=== PATIENT | male | born 1970 | race Caucasian/White ===

== ENCOUNTER 2022-07-02 18:32 | Emergency (ER) | payer OTHER, SELFPAY ==
--- NOTE | ~2022-07-02 | XR_ITS ---
EXAMINATION: XR chest 1V portable Exam Date/Time: 07/02/2022 19:12 CDT HISTORY: cough WITH CHEST PAIN X 1 DAY Comparison: 12/20/18. RESULT: Lines, tubes, and devices: None. Lungs and pleura: Hazy and linear left basilar opacities. Minimal left costophrenic angle blunting. Cardiomediastinal silhouette: Stable. Other: No acute osseous or upper abdominal finding. IMPRESSION: Subsegmental left basilar atelectasis/consolidation. Possible trace left pleural effusion. Reviewed, dictated and finalized at location K. IMPRESSION: Subsegmental left basilar atelectasis/consolidation. Possible trace left pleura l effusion.
[2022-07-02 18:37] VITALS: BP 109/68; PULSE 120; RESP 20; TEMP 36.6; O2SAT 95
--- NOTE | 2022-07-02 19:05 | ECG_ITS ---
Measurements Intervals [place] Rate: 141 P: 68 IA: 141 QRS: 48 QRSD: 85 T: 66 QT: 285 QTc: 437 Interpretive Statements SINUS TACHYCARDIA RSR' IN V1 OR V2, PROBABLY NORMAL VARIANT ABNORMAL ECG COMPARED TO ECG 12/23/2018 15:55:31 HEART RATE HAS INCREASED Electronically Signed On 07-03-2022 6:44:[address] D.O.
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
[2022-07-02] MEDS: SODIUM CHLORIDE 0.9% IV 1,000 ML 999 ML IV CONT (20:17)
[2022-07-02 20:20] LABS: Basophils Absolute Auto 0.1 K/mm3 (0.0-0.1); Basophils Percent Auto 0.5 % (0.2-1.2); Eosinophils Absolute Auto 0.1 K/mm3 (0-0.3); Eosinophils Percent Auto 0.9 % (0-4.4); Hemoglobin 15.2 g/dL (14.0-18.0); Immature Granulocyte Absolute 0.05 K/mm3 (0.00-0.031); Immature Granulocyte Percent A 0.4 % (0-0.5); Lymphocytes Absolute Auto 4.08 K/mm3 (0.9-3.2); Lymphocytes Percent Auto 29.4 % (18.3-44.2); Mean Corpuscular HGB Conc 33.8 g/dl (32-36); Mean Corpuscular Hemoglobin 30.6 pg (26-34); Mean Corpuscular Volume 90.5 fl (80-100); Mean Platelet Volume 8.8 fl (7.4-10.4); Monocytes Absolute Auto 0.8 K/mm3 (0.1-0.6); Monocytes Percent Auto 5.4 % (2.6-8.5); Neutrophils Absolute Auto 8.8 K/mm3 (1.3-6.7); Neutrophils Percent Auto 63.4 % (45.5-73.1); Platelet Count Result 506 k/mm3 (150-375); Red Blood Count 4.97 M/mm3 (4.6-6.20); White Blood Count 13.9 K/mm3 (4.5-10.0)
[2022-07-02 20:21] LABS: Appearance Urine Clear (Clear); Bilirubin Urine Negative (Negative); Blood Urine Negative (Negative); Color Urine Yellow (Yellow); Glucose Urine UA Negative (Negative); Ketones Urine Negative (Negative); Leukocyte Esterase Ur Negative LEU/UL (Negative); Nitrate Urine Negative (Negative); Protein Urine Negative (Negative); Specific Grav Ur 1.004 (1.001-1.035); Urobilinogen Urine 0.2 mg/dL (<2.0); pH Urine 5.5 (5.0-9.0)
[2022-07-02 20:32] VITALS: BP 101/77; PULSE 103; RESP 18; O2SAT 98
[2022-07-02 20:32] LABS: Prothrombin Time 13.3 Seconds (11.1-14.7)
[2022-07-02 20:33] LABS: Partial Thromboplastin Time 31.2 SECONDS (22.3-36.8)
[2022-07-02 20:35] LABS: Add Urine Microscopic? NO
[2022-07-02 20:42] LABS: Alanine Aminotransferase 17 U/L (6-50); Albumin Level 4.7 g/dL (3.5-5.1); Alkaline Phosphatase 66 U/L (38-126); Anion Gap 13 mmol/L (8-16); Aspartate Amino Transferase 26 U/L (17-59); Bilirubin,Total 0.4 mg/dL (0.2-1.3); Blood Urea Nitrogen 7 mg/dL (9-20); Calcium 8.8 mg/dL (8.4-10.2); Carbon Dioxide 23 mmol/L (22-30); Chloride 105 mmol/L (98-107); Estimated CRCL calculation 105 ml/min; Estimated Glomerular Filt Rate > 60; Glucose 90 mg/dL (65-110); Lipase 101 U/L (23-300); Magnesium 2.5 mg/dL (1.6-2.3); Potassium 3.6 mmol/L (3.4-5.0); Sodium 141 mmol/L (137-145)
[2022-07-02 20:51] LABS: Ethanol 341 mg/dL (<10)
[2022-07-02 20:54] LABS: Troponin I < 0.012 ng/mL (0.000-0.034)
[2022-07-02 21:06] LABS: Amphetamine Screen Urine Negative (Negative); Barbiturate Screen Urine Negative (Negative); Benzodiazepines Screen Urine Negative (Negative); Cannabinoid Screen Urine Negative (Negative); Cocaine Screen Urine Negative (Negative); Methadone Screen Urine Negative (Negative); Opiate Screen Urine Negative (Negative); Phencyclidine Screen Urine Negative (Negative)
[2022-07-02 21:54] VITALS: BP 115/72; PULSE 86; RESP 19; O2SAT 98
--- NOTE | 2022-07-02 22:49 | PC.NURSE ---
, Barbara his sisters number.
[2022-07-02 23:15] VITALS: BP 126/82; PULSE 87; RESP 13; O2SAT 98
== END 2022-07-02 23:15 | disposition home or self-care (01) ==
PROVIDERS: Emergency Provider Emergency Medicine
DX: F10.920 Alcohol use, unspecified with intoxication, uncomplicated (principal); Y90.8 Blood alcohol level of 240 mg/100 ml or more
CPT/HCPCS: 36415; 71045; 80053; 80307; 81003; 83690; 83735; 84484; 85025; 85610; 85730; 93005; 96360; 96361; 99284; J7030

== ENCOUNTER 2023-01-10 22:06 | Emergency (ER) | payer OTHER, SELFPAY ==
[2023-01-10 22:22] VITALS: BP 149/83; PULSE 68; RESP 14; TEMP 36.8; O2SAT 99
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
--- NOTE | 2023-01-10 22:52 | PC.NURSE ---
informed by CT that patient not in his room. Derek meyer made aware
--- NOTE | 2023-01-10 22:54 | PC.NURSE ---
pt was seen fleeing ED. security, [place] [employer], and [facility] were notified. pt has stated numerous times they still have a plan to kill his ex girlfriends boyfriend.
--- NOTE | 2023-01-10 23:04 | PC.NURSE ---
charge nurse ELENA Robbins called PD and notified them of name of girlfriend to contact them.
== END 2023-01-10 23:00 | disposition left against medical advice (07) ==
LOC: ANHED 22:53
PROVIDERS: Emergency Provider Physician Assistant
DX: R45.850 Homicidal ideations (principal); C34.92 Malignant neoplasm of unspecified part of left bronchus or lung
CPT/HCPCS: 99281

== ENCOUNTER 2023-01-11 15:24 | Emergency (ER) | payer OTHER, SELFPAY ==
[2023-01-11 15:26] VITALS: BP 144/65; PULSE 128; RESP 20; TEMP 36.6; O2SAT 100
[2023-01-11 16:20] LABS: Basophils Absolute Auto 0.1 K/mm3 (0.0-0.1); Basophils Percent Auto 0.5 % (0.2-1.2); Eosinophils Absolute Auto 0.3 K/mm3 (0-0.3); Eosinophils Percent Auto 1.9 % (0-4.4); Hematocrit 50.9 % (42.0-52.0); Hemoglobin 16.6 g/dL (14.0-18.0); Immature Granulocyte Absolute 0.05 K/mm3 (0.00-0.031); Immature Granulocyte Percent A 0.4 % (0-0.5); Lymphocytes Absolute Auto 4.96 K/mm3 (0.9-3.2); Lymphocytes Percent Auto 35.5 % (18.3-44.2); Mean Corpuscular HGB Conc 32.6 g/dl (32-36); Mean Corpuscular Hemoglobin 29.9 pg (26-34); Mean Corpuscular Volume 91.7 fl (80-100); Mean Platelet Volume 9.1 fl (7.4-10.4); Monocytes Absolute Auto 0.7 K/mm3 (0.1-0.6); Monocytes Percent Auto 4.9 % (2.6-8.5); Neutrophils Percent Auto 56.8 % (45.5-73.1); Platelet Count Result 504 k/mm3 (150-375); Red Blood Count 5.55 M/mm3 (4.6-6.20); Red Cell Distribution Width 13.7 % (11.5-14.5)
[2023-01-11 16:30] LABS: Appearance Urine Clear (Clear); Bilirubin Urine Negative (Negative); Blood Urine Negative (Negative); Color Urine Yellow (Yellow); Glucose Urine UA Negative (Negative); Ketones Urine Negative (Negative); Leukocyte Esterase Ur Negative LEU/UL (Negative); Nitrate Urine Negative (Negative); Protein Urine Negative (Negative); Specific Grav Ur 1.006 (1.001-1.035); Urobilinogen Urine 0.2 mg/dL (<2.0); pH Urine 5.5 (5.0-9.0)
[2023-01-11 16:32] LABS: Alanine Aminotransferase 16 U/L (6-50); Alkaline Phosphatase 78 U/L (38-126); Anion Gap 15 mmol/L (8-16); Aspartate Amino Transferase 21 U/L (17-59); Bilirubin,Total 0.4 mg/dL (0.2-1.3); Blood Urea Nitrogen 5 mg/dL (9-20); Calcium 9.5 mg/dL (8.4-10.2); Carbon Dioxide 25 mmol/L (22-30); Chloride 105 mmol/L (98-107); Estimated CRCL calculation 87 ml/min; Estimated Glomerular Filt Rate > 60; Glucose 103 mg/dL (65-110); Potassium 4.1 mmol/L (3.4-5.0); Sodium 145 mmol/L (137-145)
[2023-01-11 16:33] LABS: Ethanol 209 mg/dL (<10)
[2023-01-11 16:35] LABS: Add Urine Microscopic? NO
[2023-01-11 16:43] LABS: Barbiturate Screen Urine Negative (Negative); Benzodiazepines Screen Urine Negative (Negative)
[2023-01-11 16:50] LABS: Cannabinoid Screen Urine Negative (Negative); Cocaine Screen Urine Negative (Negative); Methadone Screen Urine Negative (Negative); Opiate Screen Urine Negative (Negative); Phencyclidine Screen Urine Negative (Negative)
[2023-01-11 16:55] LABS: SARS-CoV-2 RNA PCR Negative (Negative)
[2023-01-11 17:03] LABS: Thyroid Stimulating Hormone 0.225 uIU/mL (0.465-4.680)
[2023-01-11 17:17] LABS: Amphetamine Screen Urine Negative (Negative)
--- NOTE | 2023-01-11 18:29 | PC.NURSE ---
Pt becoming aggressive at sitter, dicussed POC with pt and involuntary status per PD. Pt behavior temporarily deesclated, security at bedside r/t pt behavior. Pt states all of us will be bed
--- NOTE | 2023-01-11 19:09 | ECG_ITS ---
Measurements Intervals [place] Rate: 101 P: 72 OK: 172 QRS: 69 QRSD: 86 T: 66 QT: 334 QTc: 434 Interpretive Statements SINUS TACHYCARDIA INCOMPLETE RIGHT BUNDLE BRANCH BLOCK BORDERLINE ECG COMPARED TO ECG 07/02/2022 19:54:59 HEART RATE HAS DECREASED Electronically Signed On 01-11-2023 21:40:16 SEAMING MACHINE OPERATOR by Bobo St D.O.
[2023-01-11 19:11] VITALS: PULSE 105
--- NOTE | 2023-01-11 19:11 | ED.PSYCH ---
HPI - Psych General Chief Complaint: Psychiatric Symptoms <Sherry Sierra PA-C - Last Filed: 01/12/23 03:01> Stated Complaint: depression <Sherry Sierra PA-C - Last Filed: 01/12/23 03:01> Time Seen by Provider: 01/11/23 18:22 <Sherry Sierra PA-C - Last Filed: 01/12/23 03:01> History of Present Illness HPI Narrative: 52-year-old male is brought in by [facility] and PD with involuntary paperwork signed by PD for homicidal ideations. Patient was seen in the ER yesterday and eloped. PD was contacted and he was brought back here today. The patient was brought in for homicidal ideations as he just found out his girlfriend is involved with another man. He has been stating he wants to kill both his girlfriend and the other man. Yesterday, the patient told me that he had status stepdad , today he is denying history of murder. Currently, he states he does not want to harm anyone and would never kill his girlfriend. When asked if he would kill girlfriend's boyfriend, he laughed. Prior to my evaluation, the patient had voiced to the tech outside of his room that he was going to kill the police officers as well. The patient denies suicidal ideations he does report a history of multiple suicide attempts. He states he has been hospitalized multiple times in psychiatric facilities but is unable to tell me why. One of the facilities as in [place]. He does endorse a history of anxiety but denies history of schizophrenia or hallucinations. He denies drug use to me, however told me yesterday that he had been using meth and cocaine. He also does admit to drinking ?a lot of alcohol? for the past few days including beer and vodka. Denies chest pain and shortness of breath. <Sherry Sierra PA-C - Last Filed: 01/12/23 03:01> Related Data Allergies/Adverse Reactions: Allergies Allergy/AdvReac Type Severity Reaction Status Date / Time No Known Allergies Allergy Unknown Verified 07/02/22 18:40 <Sherry Sierra PA-C - Last Filed: 01/12/23 03:01> Review of Systems Review of Systems: CONSTITUTIONAL: Denies fever, chills, or sweats. EYES: Denies visual changes, redness, or discharge. ENT: Denies rhinorrhea, congestion, sore throat, or otalgia. CARDIOVASCULAR: Denies chest pain, palpitations, or edema. RESPIRATORY: Denies cough or dyspnea. GASTROINTESTINAL: Denies abdominal pain, nausea, vomiting, or diarrhea. GENITOURINARY: Denies dysuria or hematuria. SKIN: Denies rash or itching. MUSCULOSKELETAL: Denies back pain, joint pain, or myalgia. NEUROLOGIC: Denies headache, numbness, or weakness. PSYCHIATRIC: See HPI <Sherry Sierra PA-C - Last Filed: 01/12/23 03:01> PMFSH Social History Social History: Social History Substance use type: methamphetamine <Sherry Sierra PA-C - Last Filed: 01/12/23 03:01> Exam Narrative: GENERAL: Well-appearing, well-nourished, and in no acute distress. Intoxicated HEAD: Normocephalic, atraumatic. EYES: PERRLA and EOMI. ENT: Nares clear, no rhinorrhea or epistaxis. Mucous membranes moist. NECK: Supple. CHEST: Clear to auscultation. No respiratory distress. HEART: Regular rate and rhythm. No murmur heard. Normal peripheral pulses. EXTREMITIES: Normal range of motion. No edema. SKIN: Warm, dry, no rash. NEURO: No focal deficits. Alert and oriented x3 PSYCH: Intoxicated, slurred speech. Patient currently denying SI or HI. He does endorse history of anxiety. Poor judgment and insight. No active hallucinations or delusions. Easily redirectable at this time. <Sherry Sierra PA-C - Last Filed: 01/12/23 03:01> Course TUNNEL MINER/PA Physician Supervision For this patient encounter, I reviewed the TUNNEL MINER or PA documentation, treatment plan, and medical decision making and I had [id number] time with this patient. I performed all aspects of the MDM as documented. <DO Glenn Dorantes
--- NOTE | 2023-01-11 19:22 | PC.NURSE ---
Assumed care of pt from ELENA Martinez at this time.
[2023-01-11 19:24] LABS: Free T4 Free Thyroxine 1.06 ng/mL (0.78-2.19)
[2023-01-11 23:28] VITALS: BP 159/101; PULSE 86; RESP 20; TEMP 36.4; O2SAT 97
[2023-01-12 00:18] LABS: Ethanol < 10 mg/dL (<10)
--- NOTE | 2023-01-12 01:04 | PC.NURSE ---
chestnut here to evaluate patient
--- NOTE | 2023-01-12 02:50 | PC.NURSE ---
Paul from [facility] called this RN asking for additional questions and to speak to pt. Pt cooperated and spoke w Paul. Nayely from [facility] called to verify pt was still needing placement. Stated nurse would call back for nurse to nurse report.
[2023-01-12 03:40] VITALS: BP 148/79; PULSE 97; RESP 20; O2SAT 96
--- NOTE | 2023-01-12 04:18 | PC.NURSE ---
This RN spoke w Elizabeth, RN from [facility] for nurse to nurse report. All questions answered. Elizabeth stated she would speak w doctor and call back w determination of acceptance.
--- NOTE | 2023-01-12 04:50 | PC.NURSE ---
Pt was accepted at [facility]. This RN spoke jenny Miller RN. This RN is to call report around [phone] to recieve bed placement. Pt cannot be xfr until after 0730.
[2023-01-12 06:22] VITALS: BP 151/82; PULSE 99; RESP 22; O2SAT 98
--- NOTE | 2023-01-12 06:23 | PC.NURSE ---
This RN spoke with ELENA Wagner at [facility] whom gave bed assignment and name of accepting physician. Pt to go to bed 224A after 729.
[2023-01-12 07:00] VITALS: BP 150/85; PULSE 86; RESP 20; O2SAT 98
--- NOTE | 2023-01-12 07:13 | PC.NURSE ---
Report given to ELENA Lott at this time.
== END 2023-01-12 09:04 ==
PROVIDERS: Emergency Medicine; Physician Assistant; Emergency Provider Student in an Organized Health Care Education/Training Program
DX: R45.850 Homicidal ideations (principal); Z20.822 Contact with and (suspected) exposure to COVID-19
CPT/HCPCS: 36415; 80053; 80307; 81003; 84439; 84443; 85025; 87635; 93005; 99285

== ENCOUNTER 2024-04-10 01:09 | Emergency (ER) | payer OTHER, SELFPAY ==
[2024-04-10 01:10] VITALS: BP 142/86; PULSE 110; RESP 19; TEMP 36.6; O2SAT 100
--- NOTE | 2024-04-10 03:16 | PC.NURSE ---
Per staff, pt seen ambulating out lobby doors with visitor.
== END 2024-04-10 03:16 | disposition left against medical advice (07) ==
LOC: ANHED 03:22
DX: M54.2 Cervicalgia (principal)
CPT/HCPCS: 99199

== ENCOUNTER 2024-09-02 15:39 | Emergency (ER) | payer OTHER, SELFPAY ==
[2024-09-02 15:47] VITALS: BP 148/96; PULSE 83; RESP 18; TEMP 36.4; O2SAT 100
--- NOTE | 2024-09-02 16:18 | ED.SKABFB ---
HPI - Skin/Abscess/Foreign Bdy General Chief complaint: Skin/Abscess/Foreign Body Stated complaint: Rash Time Seen by Provider: 09/02/24 16:11 Source: patient and RN notes reviewed Mode of arrival: ambulatory Limitations: no limitations History of Present Illness HPI narrative: Patient presents today with a 7-10 day history of mildly pruritic rash to the back, abdomen, and chest. He has tried calamine lotion, [id number] itch cream, and bleach without improvement of symptoms. Denies any contact with new foods, medications, plants or animals, household products. No recent illness. Patient also requesting a note of attendance at [facility] today as he missed some sort of meeting and is on parole. Related Data Home Medications ?Medication ?Instructions ?Recorded ?Confirmed ?Last Taken ?Type propranolol 10 mg tablet mg 09/02/24 Unknown History trazodone 50 mg tablet mg 09/02/24 Unknown History Allergies Allergy/AdvReac Type Severity Reaction Status Date / Time No Known Allergies Allergy Unknown Verified 09/02/24 16:01 [facility] Past Medical History Medical History (Updated 09/02/24 @ 16:22 by Alycia Wilkerson, [facility], ) Anxiety Social History Social History Substance use type: methamphetamine Comments At time of signature, I have reviewed and agree with nursing past medical, surgical, social and family history unless otherwise noted. Please see nursing chart for further information. There is no relevant family history pertinent to the presenting complaint Exam Narrative: GENERAL: Well-appearing, well-nourished, and in no acute distress. HEAD: Normocephalic, atraumatic. EYES: EOMI. No redness or drainage. Conjunctivae normal. ENT: Mucous membranes pink and moist. NECK: Normal AROM. CHEST: No respiratory distress. SKIN: Warm, dry, Capillary refill normal. Normal skin turgor. Scattered papules or tiny scabbed lesions on an erythematous base to the chest and abdomen, similar lesions to the back coalesced. No induration, drainage crusting noted. No lesions to the extremities. NEURO: No focal deficits. Alert and oriented x3. Gait steady. PSYCH: Normal affect. No signs of depression or anxiety. Course Course Level of Care: Express Care Visit Vital Signs Vital signs: Vital Signs Temperature 97.6 F 09/02/24 15:47 Pulse Rate 83 09/02/24 15:47 Respiratory Rate 18 09/02/24 15:47 Blood Pressure 148/96 H 09/02/24 15:47 Pulse Oximetry 100 09/02/24 15:47 Oxygen Delivery Room Air 09/02/24 15:47 Temperature 97.6 F 09/02/24 15:47 Pulse Rate 83 09/02/24 15:47 Respiratory Rate 18 09/02/24 15:47 Blood Pressure 148/96 H 09/02/24 15:47 Pulse Oximetry 100 09/02/24 15:47 Oxygen Delivery Room Air 09/02/24 15:47 Reviewed MDM - Skin/Abscess/Foreign Bdy MDM Narrative Medical decision making narrative: 53-year-old male patient presents with slightly pruritic rash to the abdomen, chest, and back, and then to the extremities. He is unsure of etiology. No improvement with OTC treatment. Etiology is unclear, however, does not seem to be bacterial. Will place patient on a short course of prednisone. Vital signs stable. Will provide patient with note of attendance. Anticipatory guidance given. Differential Diagnosis Differential diagnosis: Likely viral exanthem, dermatophytosis, urticaria, cellulitis, insect bites, impetigo and contact dermatitis Critical Care Time Critical Care Time Critical Care Time: No Discharge Plan Discharge Clinical Impression: Dermatitis Patient Disposition: Home Condition: Stable Instructions: Dermatitis (ED) Additional Instructions: The cause of your rash is unclear. Please take the prednisone as directed. You may continue topical treatment at home if you wish. He may also tried an antihistamine for itching if needed such as Zyrtec, Claritin, or Imelda. Follow-up with your PCP next week if symptoms are not improving. Your blood pressure was elevated above 120/80 today at Urgent Care. This puts you above the threshold for follow up. Please schedule a followup visit with your personal physician as soon as possible, for further evaluation and treatment. Even blood pressure exceeding 120/80 may indicate pre-hypertension. Patient Language: Czech Prescriptions: New prednisone 20 mg tablet 40 mg PO DAILY 5 Days Qty: 10 0RF No Action trazodone 50 mg tablet propranolol 10 mg tablet Follow-up/Referrals: Patricia,Elvia Santoro [Primary Care Provider] - Stand Alone Forms: Work/School Release IP Time of Disposition: 16:23
== END 2024-09-02 16:27 | disposition home or self-care (01) ==
PROVIDERS: Emergency Provider Nurse Practitioner; PCP Internal Medicine Infectious Disease
DX: L30.9 Dermatitis, unspecified (principal)
CPT/HCPCS: 99213; G0463